=== PATIENT | male | born 1985 | race Caucasian/White ===

== ENCOUNTER 2020-12-02 13:38 | Emergency (ER) | payer OTHER ==
[~2020-12-02] VITALS: Ht 188 cm; Wt 100.0 kg
[2020-12-02 13:50] VITALS: Ht 188 cm; Wt 100.0 kg
[2020-12-02 15:43] LABS: BASOPHILS 0.3 % (0-2); EOSINOPHILS 0.9 % (0-7); HEMATOCRIT 43.3 % (42.0-54.0); HEMOGLOBIN 14.4 g/dL (13.5-17.5); IMMATURE GRANULOCYTES 0.1 % (0-5); LYMPHOCYTE ABS# 2.37 10x3/uL (1.32-3.57); LYMPHOCYTES 35.2 % (15-50); MCH 29.1 pg (26.0-34.0); MCHC 33.3 g/dL (31.0-37.0); MCV 87.5 fL (80.0-100.0); MEAN PLATELET VOLUME 8.9 fL (7.4-10.4); MONOCYTES 9.1 % (2-11); NEUTROPHIL ABS# 3.66 10x3/uL (1.78-5.38); NEUTROPHILS 54.4 % (40-80); PLATELET COUNT 348 10x3/uL (130-400); RBC 4.95 10x6/uL (4.20-6.10); RDW 13.9 % (11.5-14.5); WBC 6.7 10x3/uL (4.8-10.8)
[2020-12-02 15:52] LABS: CALC OSMOLALITY 275 mosm/kg (275-300); CALCIUM 9.4 mg/dL (8.5-10.1); CARBON DIOXIDE 29.1 mmol/L (21.0-32.0); CHLORIDE - SERUM 102 mmol/L (98-107); CREATININE - SERUM 1.1 mg/dL (0.6-1.3); GLUCOSE 103 mg/dL (74-106); POTASSIUM - SERUM 3.3 mmol/L (3.5-5.1); SODIUM 138 mmol/L (136-145); UREA NITROGEN 13 mg/dL (7-18); eGFR NON AFRICAN AMERICAN 82 mL/min (90-120)
[2020-12-02 15:58] LABS: ALBUMIN 4.8 g/dL (3.4-5.0); ALKALINE PHOSPHATASE 77 U/L (30-120); ALT (SGPT) 37 U/L (10-68); BILIRUBIN - TOTAL 0.56 mg/dL (0.2-1.3); MAGNESIUM - SERUM 2.3 mg/dL (1.8-2.4); PROTEIN - SERUM 8.4 g/dL (6.4-8.2)
--- NOTE | 2020-12-02 16:05 | NUR ---
Risk assessment completed with no suicide plans or ideations today. He states he has never had plans to ever hurt himself. "I don't want to ". My mom started this..He states he has been treated before in the past at a local center and it was for depression not suicide. He states he took himself off the meds because of a possible reaction. He never followed up with the ordering physician. Spoke with Dr. Barfield and patient at a low risk. Suicide information and phone numbers for suicide given to patient. All information relayed to charge nurse and ED physician.
[2020-12-02 16:08] LABS: BILIRUBIN NEGATIVE (NEGATIVE); KETONE SMALL mg/dL (NEGATIVE); NITRITE NEGATIVE (NEGATIVE); UROBILINOGEN NORMAL mg/dL (< 2)
[2020-12-02 16:14] LABS: UDS - AMPHET POSITIVE QUAL (NEGATIVE); UDS - BARB NEGATIVE QUAL (NEGATIVE); UDS - BENZO NEGATIVE QUAL (NEGATIVE); UDS - COCAINE NEGATIVE QUAL (NEGATIVE); UDS - OPIATE NEGATIVE QUAL (NEGATIVE); UDS - PCP NEGATIVE QUAL (NEGATIVE); UDS - THC NEGATIVE QUAL (NEGATIVE)
[2020-12-02 18:36] LABS: SARS-CoV-2 ANTIGEN NEGATIVE- SARS-COV-2 (NEGATIVE)
[2020-12-02 23:25] VITALS: BP 141/89
== END 2020-12-02 23:25 ==
LOC: D.ER 13:38
PROVIDERS: Emergency Medicine
DX: R44.1 Visual hallucinations (principal); F23 Brief psychotic disorder; F15.10 Other stimulant abuse, uncomplicated; E87.6 Hypokalemia